=== PATIENT | male | born 1950 | race Caucasian/White ===

== ENCOUNTER 2018-05-20 12:22 | Outpatient (CLI) | payer MEDICARE, BC ==
--- NOTE | 2018-05-20 14:44 | CT ---
NONCONTRAST LUNG CREENING CT: HISTORY: The patient is currently smoking approximately 1.5 packs per day. The patient has smoked for 45 year s. Nicotine dependence. COMPARISON: 12/19/2015 TECHNIQUE: Noncontrast lung screening CT is performed utilizing department protocol. FINDINGS: Lung screening specific (lung-RADS): Negative. Minor findings are not suspicious for primary lung c ancer. Potential significant incidentals (lung-RADS category S): Intrinsically hyperdense and hypodense les ions emanating from the left renal cortex, incompletely evaluated. Mass-like fullness in the tail of the pancreas, measuring 1.7 x 3 cm. The possibility of a pancreatic tail mass cannot be completely excluded. Pulmonary incidentals: There is scarring in the lingula and middle lobe. Stable calcified nodules i n the right upper lobe due to previous granulomatous disease. Stable minimal scarring in the right l kristin apex. Other incidentals: Atherosclerosis of the aorta. There appear to be hypodense masses involving the left and right adrenal glands. Both masses have attenuation coefficients between -5 and -34 Hounsfie ld units, suggesting bilateral adrenal adenomas. There is a hypodensity in the left hepatic lobe, in completely evaluated. The hypodensity has an attenuation coefficient of [address] r [address]. IMPRESSION: 1. Lung-RADS category 1-Negative. No evidence of primary lung cancer. 2. Lung-RADS category S-Indeterminate hypodensities in the left renal cortex. Possible mass involvi ng the tail of the pancreas. Better interrogation with abdomen and pelvis CT is recommended. 3. Hypodense lesion in the liver, as described above. CODE T POS: SLOAN
== END 2018-05-20 12:23 | disposition home or self-care (01) ==
LOC: CT 12:22
PROVIDERS: ATTEND Family Medicine
DX: F17.210 Nicotine dependence, cigarettes, uncomplicated (principal); R93.422 Abnormal radiologic findings on diagnostic imaging of left kidney; K76.9 Liver disease, unspecified
CPT/HCPCS: G0297

== ENCOUNTER 2018-06-01 10:28 | Outpatient (CLI) | payer MEDICARE, BC ==
[2018-06-03] MEDS ORDERED: Iopamidol 370 76% 100 ML VIAL ONE (09:57)
--- NOTE | 2018-06-03 17:19 | CT ---
CT ABDOMEN WITH AND WITHOUT IV CONTRAST CT PELVIS WITH IV CONTRAST 06/03/18 HISTORY: Question of pancreatic mass noted on CT pulmonary lung scan. CT abdomen was recommended. COMPARISON: CT pulmonary lung scans on 12/19/15 and 05/20/18. FINDINGS: There is linear scarring versus atelectasis in the lingula. Lung bases otherwise appear clear. There are multiple scattered hypodense lesion seen in each lobe of the liver, but predominantly withi n the medial and lateral segments of the left hepatic lobe with largest lesion in the lateral segment left hepatic lobe measuring 1.8 cm which does demonstrate fluid attenuation. The findings are likely attributable to multiple hepatic cysts; although given multiplicity of hepatic hypodense lesions, cy stic metastatic lesions cannot be entirely excluded but thought less likely especially in the absence of neoplastic process. The pancreas enhances normally, and no pancreatic mass is seen as questioned on prior CT pulmonary joy ng scan. There is fullness of each adrenal gland with hypodense mass-like densities involving each adrenal gla nd which demonstrate attenuation coefficients suggesting adrenal adenomas and the adrenal glands are stable in appearance dating back to study in 2016. Subcentimeter too small to characterize hypodense lesions are seen in each kidney. There are larger h ypodense as well as hyperdense cystic left renal lesions present. Largest exophytic hypodense lesion measures 2.1 cm. No enhancement is seen involving these lesions after the administration of intraveno us contrast. One of the cystic lesions demonstrates calcification layering dependently which may repr esent milk of calcium within a cyst in the mid portion left kidney. There is no hydronephrosis presen t. The spleen and urinary bladder demonstrate a normal CT appearance. Opacified small bowel is normal in appearance. A retrocecal appendix is visualized and normal in caliber and filled with gas. A few scattered coloni c diverticula are seen. There is a small fat containing umbilical hernia noted. The prostate gland is mildly enlarged in transverse dimensions measuring 5.4 cm. Degenerative changes are seen in the lumbar spine. IMPRESSION: 1. Normal appearing pancreas. No pancreatic mass is seen involving the tail of the pancreas as q uestioned on recent pulmonary lung scan. 2. Hypodense bilateral adrenal lesions and thickening of each adrenal gland. Findings are likely related to adrenal adenomas involving each adrenal gland, and the adrenal glands have a stable appea aundrea compared to prior study in 2016. 3. Left renal cysts as well as Bosniak type II left renal cystic lesions. No enhancing renal mas s is seen. Subcentimeter too small to characterize hypodense lesions are seen in each kidney. 4. Hypodense lesions within each lobe of the liver statistically likely representing hepatic cys ts although cystic metastatic lesions could not be entirely excluded given multiplicity but are thoug ht less likely. 5. Fat containing umbilical hernia. 6. Enlargement of the prostate gland. POS: [facility]
== END 2018-06-01 10:29 | disposition home or self-care (01) ==
LOC: BICCT 10:28
PROVIDERS: ATTEND Family Medicine
DX: K86.9 Disease of pancreas, unspecified (principal); R93.3 Abnormal findings on diagnostic imaging of other parts of digestive tract; E27.9 Disorder of adrenal gland, unspecified; N28.1 Cyst of kidney, acquired; N28.9 Disorder of kidney and ureter, unspecified; K42.9 Umbilical hernia without obstruction or gangrene; N40.0 Benign prostatic hyperplasia without lower urinary tract symptoms
CPT/HCPCS: 74178; 82565; Q9967

== ENCOUNTER 2019-06-30 12:06 | Outpatient (CLI) | payer MEDICARE, BC ==
--- NOTE | 2019-06-30 12:38 | CT ---
EXAM: CT Pulmonary Lung Scan PROVIDED CLINICAL HISTORY: Nicotine dependence COMPARISON: 05/20/2018 FINDINGS: The heart, pericardium and great vessels are suboptimally evaluated in the absence of IV contrast mat erial but demonstrate a stable unenhanced CT appearance. There is no evidence for thoracic lymph node enlargement, with limitations due to lack of IV contrast. There is a partially visualized somewhat peripherally lobular focus of abnormal density at the anteri or aspect of the proximal most visualized trachea in the region of the hyoid bone, etiology and significance of which is uncertain. The airway appears otherwise patent and of normal caliber as visu alized. The lungs are free of significant opacity. No pleural fluid, pleural thickening or pneumothorax apparent. The visualized portions of the upper abdomen demonstrate a stable unenhanced CT appearance. The osseous structures demonstrate no concerning lytic or blastic lesions. IMPRESSION: 1. Lung RADS category 1-negative. Continue annual screening. 2. Lung RADS category S: Possible mass involving the trachea, incompletely visualized. Correlation [facility] dedicated CT soft tissue neck recommended.
== END 2019-06-30 12:07 | disposition home or self-care (01) ==
LOC: CT 12:06
PROVIDERS: ATTEND Family Medicine
DX: Z12.2 Encounter for screening for malignant neoplasm of respiratory organs (principal); F17.210 Nicotine dependence, cigarettes, uncomplicated
CPT/HCPCS: G0297

== ENCOUNTER 2019-07-14 12:36 | Outpatient (CLI) | payer MEDICARE, BC ==
--- NOTE | 2019-07-14 13:41 | CT ---
CT neck soft tissues with contrast: DATE: 07/14/2019 HISTORY: 69-year-old male with tracheal mass found on chest CT. FINDINGS: There is an approximately 1.3 x 1.4 x 0.8 cm lobular soft tissue density mass at the anterior commiss ure of the true vocal cord, decreasing the cross-sectional area of the airway at the level of the cricoid cartilage by approximately 30%. There is sclerosis of the anterior portion of the thyroid car tilage which the mass broadly abuts. This may or may not indicate neoplastic invasion of the thyroid cartilage. There is no efren destruction of the thyroid cartilage. No involvement of the cric oid cartilage. Inferior to the cricoid cartilage level, the trachea is normal. There are multiple cystic lesions involving the pharyngeal mucosal space of the lateral aspects of th e oropharynx, protruding into the airway bilaterally. The largest cystic lesion is on the right measuring 1.2 cm in greatest dimension. The cystic lesions are by septations of varying thi ckness. No cervical lymphadenopathy. Bilateral palatine tonsils are symmetrically enlarged. No significant en largement of the adenoids or lingual tonsil. 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 Those port ions of those spaces that are visualized demonstrate no gross abnormality. Unremarkable thyroid gland. No destructive osseous lesion identified in the cervical spine or mandible or skull base. No gross pathology identified involving sublingual, submandibular, carotid, retropharyngeal, perivert ebral, and posterior cervical, spaces. IMPRESSION: 1. Mass at the anterior aspect of the larynx involving true vocal cords and anterior commissure: Evid ence for neoplasm. 2. Multiple cystic lesions in the pharyngeal mucosal space of the oropharynx laterally bilaterally, o f uncertain etiology. Recommend direct visualization. 3. No cervical lymphadenopathy.
== END 2019-07-14 12:37 | disposition home or self-care (01) ==
LOC: CT 12:36
PROVIDERS: ATTEND Family Medicine
DX: R22.1 Localized swelling, mass and lump, neck (principal); J38.7 Other diseases of larynx; J39.2 Other diseases of pharynx; D49.1 Neoplasm of unspecified behavior of respiratory system
CPT/HCPCS: 70491

== ENCOUNTER 2019-07-21 09:19 | Day surgery (SDC) | payer MEDICARE, BC ==
[2019-07-20 11:58] VITALS: BMI 29.0
[2019-07-21] MEDS ORDERED: PROPOFOL 200 MG/20 ML VIAL ONE (09:54)
[2019-07-21] MEDS ORDERED: Succinylcholine Chloride 20 MG/ML 10 ml SYRINGE FS ONE (09:54)
[2019-07-21] MEDS ORDERED: Lidocaine 1% PF 5 ML VIAL ONE (09:54)
[2019-07-21] MEDS ORDERED: Glycopyrrolate 0.2 MG/ML 5 ML SYRINGE ONE (09:54)
[2019-07-21] MEDS ORDERED: Rocuronium Bromide 10 MG/ML (10ML VIAL) ONE (09:54)
[2019-07-21 10:15] LABS: Hemoglobin 15.3 g/dL (14.0-18.0)
[2019-07-21 10:36] LABS: Anion Gap 12 mmol/L (10-20); BUN (Urea Nitrogen) 15 mg/dL (8.4-25.7); Calc. Creatinine Clearance 100 mL/min (70-130); Calcium 9.8 mg/dL (7.8-10.44); Carbon Dioxide 27 mmol/L (23-31); Chloride 102 mmol/L (98-107); Estimated GFR-MDRD 81; Glucose 91 mg/dL (80-115); Potassium 4.2 mmol/L (3.5-5.1); Sodium 137 mmol/L (136-145)
[2019-07-21] MEDS ORDERED: EPINEPHrine 1 MG/ML AMP ONE (11:05)
[2019-07-21] MEDS ORDERED: Midazolam HCl 2 mg/2 ml Vial ONE ×2 (11:32→11:33)
[2019-07-21] MEDS ORDERED: Fentanyl 100 MCG/2 ML VIAL ONE (11:32)
[2019-07-21] MEDS ORDERED: SUGAMMADEX SODIUM 200 MG/2 ML VIAL ONE (12:08)
--- NOTE | 2019-07-21 12:22 | EKG ---
Test Reason : PREOP Blood Pressure : / mmHG Vent. Rate : 052 BPM Atrial Rate : 052 BPM P-R Int : 136 ms QRS Dur : 096 ms QT Int : 438 ms P-R-T Axes : 060 063 060 degrees QTc Int : 407 ms Sinus bradycardia Otherwise normal ECG When compared with ECG of 21-DEC-2015 10:05, No significant change was found Confirmed by ANTONIA GUILLEN, SWilson ([id number]) on 07/21/2019 12:22:01 PM Referred By: CONCHIS Confirmed By:DR. Sherrill KNIGHT MD
[2019-07-21] MEDS ORDERED: Ondansetron PF 4 MG/2 ML Vial ONE (12:27)
--- NOTE | 2019-07-21 16:27 | OP ---
DATE OF PROCEDURE: 07/21/2019 PREOPERATIVE DIAGNOSIS: Right vocal cord lesion. POSTOPERATIVE DIAGNOSIS: Right vocal cord lesion. PROCEDURE PERFORMED: Microsuspension laryngoscopy with a biopsy of right vocal cord lesion and shaving of right vocal cord lesion. FINDINGS: The patient was found to have, at the time of surgery, some superficial abnormalities of the right vocal cord and posteriorly consistent with leukoplakia and then what was discovered to be a bulky exophytic lesion in the anterior subglottic space on the right. DESCRIPTION OF PROCEDURE: After consent was obtained, the patient was identified and brought to the operating room and placed on the operating table in supine position. General endotracheal anesthesia was obtained. The patient was positioned for surgery. Photographs were obtained prior and after intubation. At the time of laryngoscopy, the oral cavity, oropharynx, hypopharynx were examined as well as larynx. The real abnormalities were found to be at the laryngeal level. Telescopic examination of the larynx revealed a somewhat bulky lesion at the anterior aspect of the undersurface of the true vocal cord that extended subglottically approximately 1 cm. Remainder of examination was within normal limits. The patient was then awakened, extubated, and taken to recovery room in a stable condition prior to discharge home. Job ID: [id number]
== END 2019-07-21 13:40 | disposition home or self-care (01) ==
LOC: SDC 09:19
PROVIDERS: ATTEND Specialist
PROC: 0CBT8ZX Excision of Right Vocal Cord, Via Natural or Artificial Opening Endoscopic, Diagnostic (ICD-10-PCS; principal; 2019-07-21)
DX: C32.2 Malignant neoplasm of subglottis (principal); Z87.891 Personal history of nicotine dependence
CPT/HCPCS: 36415; 80048; 85014; 85018; 88305; 93005; 93010; J0171; J2001; J2250; J2405; J2704; J3010

== ENCOUNTER 2019-08-05 08:10 | Outpatient (CLI) | payer MEDICARE, BC ==
--- NOTE | 2019-08-05 11:10 | PET ---
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 PET scan and attenuation correction CT performed from skull base to proximal thighs. PET scan and attenuation correction CT thinner slices performed through head and neck. FINDINGS: SUV (standard uptake values) numbers given are maximum SUVs. QCLR used. There is increased FDG uptake in the tumor mass at the anterior portion of the larynx at the level of the true vocal cords and subglottic region, including anterior commissure, with SUV of 8.0. The multiple low attenuation cystic bilateral lateral supraglottic lesions described on the CT report of 07/14/2019, are hypermetabolic. On the right, SUV is 4.2. On the left, SUV is 4.6. There is symmetrical uptake in the bilateral palatine tonsils and muscles of mastication, and in the intrinsic tongue muscles, all consistent with muscle contraction activity. There are no hypermetabolic pathological cervical lymph nodes. There are bilateral low-attenuation adrenal nodules, with the one on the right density of -15 Hounsfi eld units, and one on the left with density of 0.5 Hounsfield units, and another on the left with -7 Hounsfield units, all benign adrenal adenomas There are multiple cysts in the liver, mostly in the left lobe. No suspicious hypermetabolic lesions in the chest, abdomen, or pelvis. A 1 cm dystrophic calcification at the peripheral left renal midpole cortex. Multiple left renal cyst s. 1.8 cm hyperdense nonhypermetabolic exophytic left renal cyst protruding from posterior cortical surface. 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 2) the multicystic bilateral lateral supraglottic laryngeal lesions are hypermetabolic. They are favo red to represent an inflammatory process, and neoplasm is less likely, but clinical correlation is recommended. Consider biopsy if necessary. 3) no metastatic cervical lymphadenopathy. 4) no distant metastasis. 5) benign bilateral adrenal nodules. 6) multiple hepatic cysts.
== END 2019-08-05 08:11 | disposition home or self-care (01) ==
LOC: PET 08:10
PROVIDERS: ATTEND Radiology Radiation Oncology
DX: C32.2 Malignant neoplasm of subglottis (principal); E04.2 Nontoxic multinodular goiter; E27.8 Other specified disorders of adrenal gland
CPT/HCPCS: 78815; A9552

== ENCOUNTER 2020-02-24 08:12 | Outpatient (CLI) | payer MEDICARE, BC ==
--- NOTE | 2020-02-24 11:03 | PET ---
EXAM: PET/CT HISTORY: Head and neck cancer; laryngeal cancer TECHNIQUE: PET scanning with CT attenuation correction was performed from the vertex of the skull to the proxima l thighs following the intravenous administration of 12.5 millicuries [id number]. COMPARISON: Prior CT the soft tissues of the neck dated July 14, 2019 and a prior PET/CT dated August 05, 2019 FINDINGS: Biodistribution:The biodistribution for the exam appears acceptable. Head and neck: There is appropriate background activity within the brain. The hypermetabolic anterior commissure mass is no longer demonstrated. There is hypermetabolic activity seen along the posterior aspect of the vocal cords peak activity 7.53 mean activity of 6.53. This was present on the prior examination with similar metabolic uptake. There is symmetric metabolic uptake seen within the scalene musculature bilaterally. No hypermetabolic lymphadenopathy is evident. The cystic abnorma lities in the region of the palatine tonsils are no longer demonstrated. Thorax: No hypermetabolic pulmonary nodule or pleural effusion is demonstrated. No hypermetabolic lym phadenopathy is evident. Abdomen and pelvis: There is expected background activity within the GI and systems.No suspicious hypermetabolic mass or lymphadenopathy is evident. No hypermetabolic ascites is present. Multiple liver cysts, bilateral adrenal adenomas and left renal cysts are stable. Osseous structures and skin: No hypermetabolic skin or osseous lesion is identified. IMPRESSION: 1. Findings consistent with response to therapy. Resolution of the hypermetabolic anterior laryngeal mass. Continued follow-up is recommended. 2. Persistent hypermetabolic activity along the posterior aspects of the vocal cords is likely relat ed to phonation. Continued follow-up is recommended. 3. No evidence of hypermetabolic distant metastatic disease.
== END 2020-02-24 08:13 | disposition home or self-care (01) ==
LOC: PET 08:12
PROVIDERS: ATTEND Specialist
DX: C32.9 Malignant neoplasm of larynx, unspecified (principal); R93.89 Abnormal findings on diagnostic imaging of other specified body structures
CPT/HCPCS: 78815; A9552

== ENCOUNTER 2021-09-12 15:20 | Outpatient (CLI) | payer MEDICARE, BC | END 2021-09-12 15:21 | disposition home or self-care (01) | LOC: BICCT 15:20 | PROVIDERS: ATTEND Family Medicine | DX: Z12.2 Encounter for screening for malignant neoplasm of respiratory organs (principal); F17.210 Nicotine dependence, cigarettes, uncomplicated; J98.4 Other disorders of lung | CPT/HCPCS: 71271 ==

== ENCOUNTER 2022-01-01 14:24 | Outpatient (CLI) | payer MEDICARE, BC | END 2022-01-01 14:25 | disposition home or self-care (01) | LOC: BICCT 14:24 | PROVIDERS: ATTEND Family Medicine | DX: R93.89 Abnormal findings on diagnostic imaging of other specified body structures (principal); Z72.0 Tobacco use; J98.4 Other disorders of lung; K76.89 Other specified diseases of liver; N28.1 Cyst of kidney, acquired; E27.8 Other specified disorders of adrenal gland; N20.0 Calculus of kidney; K42.9 Umbilical hernia without obstruction or gangrene | CPT/HCPCS: 71250 ==